=== PATIENT | female | born 1970 | race Caucasian/White ===

== ENCOUNTER → 2016-10-31 | Day surgery (SDC) | payer MEDICARE, OTHER ==
[~2016-10-31] MED LIST: GLUCAGON 1 MG/ML VIAL IM STA
[2016-10-31 11:43] VITALS: BP 117/69; PULSE 61; RESP 16; TEMP 98.1
--- NOTE | 2016-11-07 08:58 | MR ---
EXAMINATION TYPE: MR Enterography DATE OF EXAM: 10/31/2016 COMPARISON: Outside CT August 15, 2016. Outside CT is suboptimal as not all images are saved in [employer] soft tissue window. HISTORY: Crohn's disease, unspecified, without complications per order. Diffuse abdominal pain with h istory of prior: Cancer 2011 per patient. CONTRAST: Standard multiplanar, multisequence imaging of the abdomen is performed without and with IV contrast, patient is injected with 10 mL intravenous MultiHance gadolinium contrast. Oral Volumen was given as per enterography protocol. FINDINGS: Patient has very little intra-abdominal fat making evaluation suboptimal. BOWEL: There is satisfactory distention of the stomach and proximal duodenum up to mid third portion with abrupt caliber change redemonstrated in the midline seen best axial image 24 series 301. Crossov er of third portion of duodenum remains fairly inferior similar prior CT making SMA syndrome as etiol ogy unlikely. No suspicious wall thickening and stomach or duodenum is identified. Similar to CT ther e is fluid distention of the fourth portion of duodenum and appropriate positioning of the ligament o f Treitz. There are fluid-filled nondilated small bowel loops occupying the lower abdomen and pelvis. There is artifact degradation in the lower abdomen and pelvis making evaluation suboptimal. Distal colon from splenic flexure to rectum is not well distended and thus suboptimally evaluated. The proximal colon is not well seen on prior CT or MRI to evaluate terminal ileum. I do see portions of proximal colon o n CT less well seen on today's MRI. There is no convincing evidence of suspicious eccentric mural thi ckening or enhancement. Terminal ileum though was not distinctly identified with certainty. OTHER: Lung bases are grossly clear. Visualized liver remains slightly prominent. Gallbladder extends to right lateral aspect of abdomen similar to CT. The spleen, pancreas, and both adrenal glands are felt normal in size. There is exophytic nonenhancing 2 cm T2 hypointense lesion from lower pole left kidney felt to reflect proteinaceous or hemorrhagic cyst redemonstrated. Uterus and bladder are poorl y visualized. Visualized osseous structures are intact. No suspicious free fluid is seen. Vascular st ructures are patent. IMPRESSION: 1. Markedly suboptimal study due to artifact particularly lower abdomen and pelvis and patient having very little intra-abdominal fat. No convincing evidence of active inflammation is identified. Termin al ileum is not seen with certainty. Entire proximal half of colon also not identified with certainty . No suspicious stricturing is seen. Persistent dilatation of stomach and proximal portion of duodenu m of uncertain etiology.
== END ==
LOC: RADMRIMAIN 11:13
PROVIDERS: ATTEND Physician Assistant
DX: K31.89 Other diseases of stomach and duodenum (principal); K50.90 Crohn's disease, unspecified, without complications; R10.9 Unspecified abdominal pain
CPT/HCPCS: 96372; 72197; 74183; J1610; A9577